=== PATIENT | male | born 1955 | race Caucasian/White ===

== ENCOUNTER → 2017-08-14 09:37 | Outpatient (CLI) | payer BC, SELFPAY ==
--- NOTE | 2017-08-14 09:42 | RAD_ITS ---
STUDY: X-RAY - LEFT ANKLE REASON FOR EXAM: Lateral pain and swelling, fall last night. TECHNIQUE: 3 view(s) of the ankle. COMPARISON: None. FINDINGS: Normal visualized distal tibia and fibula. Normal medial and lateral malleoli. Normal tibiotalar articulation and ankle mortise. Normal visualized talus and calcaneus. The visualized subtalar, talonavicular, calcaneocuboid and tarsal articulations are normal. There is mild soft tissue swelling at the lateral aspect of the ankle. There is soft tissue calcification plantar aspect of the heel. RAD/Ankle min 3 Views IMPRESSION: Mild soft tissue swelling. Soft tissue calcification at the plantar aspect of the heel. No demonstrated fracture. Electronically Signed: Harrison Rincon MD at 10:07 EST Tel , Service support ,
== END ==
PROVIDERS: Family Provider Nurse Practitioner; PCP Nurse Practitioner; Visit Provider Nurse Practitioner
DX: M25.472 Effusion, left ankle (principal)
CPT/HCPCS: 73610

== ENCOUNTER → 2018-02-21 08:14 | Outpatient (CLI) | payer BC, SELFPAY | PROVIDERS: Family Provider Nurse Practitioner; PCP Nurse Practitioner; Visit Provider Nurse Practitioner Adult Health | DX: R68.82 Decreased libido (principal); N52.9 Male erectile dysfunction, unspecified | CPT/HCPCS: 36415; 84403 ==

== ENCOUNTER → 2018-05-24 12:45 | Outpatient (CLI) | payer BC, SELFPAY ==
[2015-11-04 19:37] VITALS: BMI 29.2
[2018-05-25 11:52] LABS: PSA, Free 0.92 ng/mL; PSA, Free % 36.8 % (.); PSA, Total Ultrasensitive 2.5 ng/mL (0.0-4.0)
--- OUTSIDE RECORDS SUMMARY | 2018-07-19 16:15 | XMS RPT_ITS ---
:1955 Author Organization OHIP Care Team Providers Name Role Phone Zeenat [place] Attending Unavailable Zeenat Milan Primary Care Unavailable Lorna Gupta Attending Unavailable Lorna Gupta Referring Unavailable Zeenat Milan Primary Care Unavailable Lorna Gupta Attending Unavailable Lorna Gupta Referring Unavailable Zeenat Milan Primary Care Unavailable PROBLEMS PROBLEMS DATE TYPE CONDITION / CODE ATTENDING STATUS SOURCE 02/21/2018 Unknown R68.82 - Lorna Gupta Active [place] Decreased libido M Community / R68.82(ICD-10) Hospital Repository 02/21/2018 Unknown N52.9 - Male Lorna Gupta Active [place] erectile M [facility] dysfunction, Hospital unspecified / Repository N52.9(ICD-10) 08/14/2017 Unknown M25.472 - Zeenat Milan Active [place] Effusion, left Community ankle / Hospital M25.472(ICD-10) Repository PROCEDURES PROCEDURES No Procedure Records FoundRESULTS RESULTS PSA TOTAL+%FREE Collected: 05/24/2018 Status: F Source: AU[place]A 12:59 PM [facility] HOSPITAL REPOSITORY TYPE CODE TESTS RESULT OUT OF RANGE REFERENCE UNITS LAB L3110.0700 0.0-4.0 ng/mL Normal PSA, 2.5 TOTAL Result Comment: Nic ECLIA methodology. According to the [place] [employer], Serum PSA should decrease and remain at undetectable levels after radical prostatectomy. The AUA defines biochemical recurrence as an initial PSA value 0.2 ng/mL or greater followed by a subsequent confirmatory PSA value 0.2 ng/mL or greater. Values obtained with different assay methods or kits cannot be used interchangeably. Results cannot be interpreted as absolute evidence of the presence or absence of malignant disease. LAB L3110.0800 N/A ng/mL Normal PSA, 0.92 FREE Result Comment: Nic ECLIA methodology. LAB L3110.0900 . % Normal PSA, FREE 36.8 % Result Comment: The table below lists the probability of prostate cancer for men with non-suspicious JAX results and total PSA between 4 and 10 ng/mL, by patient age (Werner et al, KELLEY 1998, 279:1542). % Free PSA 50-64 yr 65-75 yr 0.00-10.00% 56% 55% 10.01-15.00% 24% 35% 15.01-20.00% 17% 23% 20.01-25.00% 10% 20% >25.00% 5% 9% Please note: Werner et al did not make specific recommendations regarding the use of percent free PSA for any other population of men. Performed at: - [employer] [address] [id number] Drum Tester: Joseph Recio PhD, Phone: [phone] Performed By: #### L3110.0500 #### [facility] (refer to report for specific site) refer to report for address and phone number TESTOSTERONE, SERUM TOTAL Collected: 02/21/2018 Status: F Source: AU[place] 8:18 AM [facility] REPOSITORY TYPE CODE TESTS RESULT OUT OF REFERENCE UNITS RANGE LAB L509.3000 ng/dL Testosterone Normal 423.87 Result Comment: NORMAL REFERENCE RANGES MALE AGE <50 123.06 - 813.86 ng/dL MALE AGE >50 89.98 - 780.10 ng/dL FEMALE PREMENOPAUSE AGE 21 - 60 9.01 - 47.94 ng/dL FEMALE POSTMENOPAUSE AGE 45 - 89 <7.00 - 45.62 ng/dL REFERENCE RANGE AND METHODOLOGY CHANGED 06/14/2017 Performed By: #### L509.3000 #### [facility] [address] [place], [address] ANKLE MIN 3 VIEWS Observed: 08/14/2017 Status: F Source: AUDRA 9:43 AM [facility] HOSPITAL REPOSITORY [facility] Imaging Services [address] [place] [address] Ankle min 3 Views MR#: [id number] Acct: [id number] Name: WESLEY CAMPOS Rep #: [id number] : 1955 M 62 From: Harrison Rincon MD PCP: Zeenat Milan NP Status: REG CLI Study: Ankle min 3 Views Date of Exam: 08/14/17 Exam# [id number] Ordering Dr: Zeenat Milan STUDY: X-RAY - LEFT ANKLE REASON FOR EXAM: Lateral pain and swelling, fall last night. TECHNIQUE: 3 view(s) of the ankle. COMPARISON: None. FINDINGS: Normal visualized distal tibia and fibula. Normal medial and lateral malleoli. Normal tibiotalar articulation and ankle mortise. Normal visualized talus and calcaneus. The visualized subtalar, talonavicular, calcaneocuboid and tarsal articulations are normal. There is mild soft tissue swelling at the lateral aspect of the ankle. There is soft tissue calcification plantar aspect of the heel. RAD/Ankle min 3 Views IMPRESSION: Mild soft tissue swelling. Soft tissue calcification at the plantar aspect of the heel. No demonstrated fracture. Electronically Signed: Harrison Rincon MD at 10:07 EST Tel , Service support , CC: Zeenat Milan NP Director Of Search Engine Optimization: Signed ALLERGIES ALLERGIES DATE TYPE / CODE NAME / CODE REACTION SEVERITY SOURCE 11/04/2015 Drug venom-honey Anaphylaxis Unknown [facility] Allergy/4160 bee/[id number] Hospital 45257(SNOMED 698(RXNORM) Repository CT) ENCOUNTERS ENCOUNTERS ADMIT/DISCHARGE ACCOUNT ADMITTING ENCOUNTER LOCATION SOURCE NUMBER CLASS 05/24/2018 [id number] Ambulatory [place] 7 [facility] ing:MTLAB Repository 02/21/2018 [id number] Ambulatory [place] Audra 9 [facility] ing:LAB Repository 08/14/2017 [id number] Ambulatory [place] Audra 8 [facility] ing:HPRAD Repository PAYERS PAYERS ENCOUNTER GUARANTOR PAYER SUBSCRIBER SOURCE 05/24/2018 WESLEY Sue Primary WESLEY [id number] Insurance:ANTHEMPolic BURTTDOB: Community [place]IVAS [place]: [id number] [id number] Repository [phone]: ([phone]) Date:0020-54-22EM [phone] () [address] [place] [id number]: 05/24/2018 Secondary NOT GIVENUNK Audra Insurance:SELF PAY [facility] Number: Effective Repository Date:2018-05-24 02/21/2018 Wesley [id number] Primary Wesley CamposDOB: [place] E Vivas Insurance:ANTHEMPolic [id number] Number: [facility] [id number]: (330) [id number] Repository [phone] () Date:9075-04-40PG [address] [place] [address] 14110DZ: 02/21/2018 Secondary NOT GIVENUNK Audra Insurance:SELF PAY [facility] Number: Effective Repository Date:2018-02-21 08/14/2017 Wesley [id number] Primary Wesley CamposDOB: Aud[place] E Vivas Insurance:ANTHEMPolic [id number] Number: [facility] [id number]: (330) [id number] Repository [phone] (HP) Date:6970-75-58AO [id number] [place] [address]BL: 08/14/2017 Secondary NOT GIVENUNK Audra Insurance:SELF PAY [facility]: Effective Repository Date:2017-08-14
== END ==
PROVIDERS: Family Provider Nurse Practitioner; PCP Nurse Practitioner; Referring Provider Nurse Practitioner Adult Health; Visit Provider Nurse Practitioner Adult Health
DX: R97.20 Elevated prostate specific antigen [PSA] (principal)
CPT/HCPCS: 36415; 84153; 84154

== ENCOUNTER → 2019-05-10 12:37 | Outpatient (CLI) | payer BC, SELFPAY ==
[2019-05-10 14:03] LABS: PSA,Total- Diagnostic 3.68 ng/mL (0.0-4.0)
== END ==
LOC: LAB.FUTURE 12:46 → LAB 12:46
PROVIDERS: Family Provider Nurse Practitioner; PCP Nurse Practitioner; Referring Provider Nurse Practitioner Adult Health; Visit Provider Nurse Practitioner Adult Health
DX: R97.20 Elevated prostate specific antigen [PSA] (principal)
CPT/HCPCS: 36415; 84153

== ENCOUNTER → 2020-07-17 06:28 | Outpatient (CLI) | payer BC, SELFPAY ==
[2020-07-03 08:26] VITALS: BMI 28.7
--- NOTE | 2020-07-17 06:32 | ECHOD_ITS ---
Reason For Study: AFib/Flutter Procedure This was a 2D Doppler, Color Flow transthoracic echocardiogram. Exam performed in department. Left Ventricle Normal LV size. Left ventricular systolic function is normal. The estimated ejection fraction is 60 %. No regional wall motion abnormalities noted. Right Ventricle Normal RV size. Normal systolic function. Atria The left atrium is mildly enlarged. Normal right atrium. Mitral Valve Normal mitral valve. Mild (1+) mitral valve insufficiency. Tricuspid Valve Normal tricuspid valve. Unable to estimate RV systolic pressure due to insufficient tricuspid regurgitant envelope. Aortic Valve Normal aortic valve. Trisinus/trileaflet aortic valve. Pulmonic Valve Normal pulmonic valve. Great Vessels Normal aortic root. The pulmonary artery is normal size. Normal inferior vena cava. Pericardium/Pleural No pericardial effusion. MMode/2D Measurements & Calculations LVIDd: 4.3 cm IVSd: 1.1 cm Ao root diam: 3.1 cm LVIDs: 2.7 cm LVPWd: 1.1 cm LA dimension: 4.2 cm RVDd: 2.9 cm FS: 37.8 % LAV(MOD-bp): 63.8 ml LA A4 area: 22.0 cm2 RA A4 area: 16.1 cm2 LAV(MOD-bp) Indexed: 27.2 ml/m2 LAV(MOD-sp2): 58.9 ml LAV(MOD-sp4): 60.3 ml Doppler Measurements & Calculations MV E max kitty: 107.0 cm/sec Ao V2 max: 134.6 cm/sec LV V1 max: 104.0 cm/sec Ao max P.3 mmHg LV V1 max P.3 mmHg PA V2 max: 97.9 cm/sec Interpretation Summary Normal LV size. Left ventricular systolic function is normal. The estimated ejection fraction is 60 %. The left atrium is mildly enlarged. Ordering Physician: All Smith Referring Physician: Zeenat Milan Performed By: Godfrey Shabazz RCS
--- NOTE | 2020-07-17 14:05 | STRESSREP ---
Stress Test Report Exercise myocardial perfusion stress test. 64-year-old male with a history of atrial fibrillation and hypertension. Stress protocol: Resting EKG demonstrates atrial fibrillation with a rate of 82 bpm normal intervals are noted resting blood pressure 118/62 mmHg. The patient exercised according to regular Nixon protocol for a total duration of 7 minutes completing 1 minute into stage III of the Nixon protocol. The maximum heart rate attained with probably approximately 210 bpm. This was 144% of max impacted heart rate the maximum workload was 8.5 metabolic equivalents. At rest nonspecific ST-T wave changes were noted at peak exercise there was approximately 1.[address] depression noted in leads II, III and aVF V5 and V6. Occasional premature ventricular complexes noted. In the immediate post recovery time there was upsloping ST changes noted with intermediate criteria for ischemia. The test was terminated due to the target heart rate being achieved and dyspnea. The peak blood pressure was 168/82 mmHg. Myocardial perfusion protocol. 14.2 mCi of technetium 99m sestamibi was injected at rest. Patient exercised according to regular Nixon protocol for a total duration of 7 minutes. At peak exercise 43.9 mCi of technetium 99m sestamibi was injected stress images were obtained stress and rest images were reconstructed and compared in the short axis vertical long horizontal long axis. Gated images were also obtained Perfusion SPECT analysis: Review of the stress images demonstrate normal uptake of tracer noted in all areas of myocardium except for a small portion of the mid anterior wall with a perfusion defect on the stress and resting images to a similar extent. A previous small anterior infarct cannot be completely excluded. Gated SPECT analysis: The gated ejection fraction is noted to be 68%. Conclusion: Normal exercise myocardial perfusion stress test at a moderate workload. Atrial fibrillation noted. Previous small anterior infarct cannot be completely excluded.
== END ==
PROVIDERS: PCP Nurse Practitioner; Referring Provider Internal Medicine Cardiovascular Disease; Visit Provider Internal Medicine Cardiovascular Disease
DX: I48.91 Unspecified atrial fibrillation (principal); I10 Essential (primary) hypertension
CPT/HCPCS: 78452; 93017; 93306; A9500; A4216

== ENCOUNTER 2021-01-24 13:00 | Emergency (ER) | payer BC, SELFPAY ==
[2021-01-21 09:50] VITALS: BMI 27.6
[2021-01-24 13:00] VITALS: BP 115/83; PULSE 69; RESP 16; TEMP 36.2; O2SAT 98; BMI 28.2
--- NOTE | 2021-01-24 13:22 | MRI_ITS ---
HISTORY: radiculopathy (RIGHT leg), LBP, difficulty urinating EXAMINATION: MR Spine Lumbar W/O Contrast TECHNIQUE: Multiplanar and multisequence MR images of the lumbar spine. IV Contrast dosage and agent: None. COMPARISON: 329 and 12 FINDINGS: VERTEBRAE: No acute fracture or pathologic marrow replacement. 3 mm retrolisthesis L3 on L4. No expansile or destructive lesion. CORD: Normal visualized portions of the spinal cord and cauda equina, with the tip of the conus medullaris at the L1 level. No intradural or intramedullary soft tissue mass or epidural fluid collection. SOFT TISSUES: Unremarkable. L1/L2: Circumferential annular bulge without significant central or foraminal stenosis. L2/L3: Circumferential annular bulge with mild central and bilateral foraminal stenoses. High intensity zone in the posterior annulus. L3/L4: Circumferential annular bulge with progressive loss of disc space height, moderate central and left foraminal stenosis, severe right foraminal stenosis. L4/L5: Circumferential annular bulge with high intensity zone in the posterior annulus. No significant central or foraminal stenosis. L5/S1: No disc bulge, central canal stenosis, or neural foraminal stenosis. MRI/Spine Lumbar (Routine) IMPRESSION: Multilevel foraminal stenoses due to circumferential annular bulge. Changes L3-4 have progressed from the prior study with severe right foraminal stenosis. Radial annular tears at L2-3 and L4-5. at 1547 Reported and signed by: Christophe Short MD Electronically Signed: Christophe Short MD at 15:46 EDT Tel , Service support ,
--- NOTE | 2021-01-24 13:24 | EDS_ITS ---
HPI History of Present Illness Chief Complaint: Back Detail of Chief Complaint: Back pain Informant: patient Onset/Context/Timing Timing: Continuous Quality: Sharp, Aching, Burning and Throbbing Location: Lumbar Current Severity: 8/10 Worsened by: improves with Movement Relieved by: Nothing Associated Symptoms Associated Symptoms: [facility] History (Updated 01/24/21 @ 16:[address] China Millard, DO) Acute lumbar myofascial strain Atrial fibrillation, new onset (06/22/20) COPD (chronic obstructive pulmonary disease) DDD (degenerative disc disease), lumbar Dilation of descending aorta Essential hypertension Hyperlipidemia Lumbar radiculopathy, acute Vitamin D deficiency Home Medications epinephrine 0.3 mg IM X1 PRN #2 syringe 11/04/15 [Rx Last Taken Unknown] apixaban 5 mg tablet 5 mg PO BID 06/30/20 [History Last Taken Unknown] atenolol 25 mg tablet 25 mg PO DAILY 06/30/20 [History Last Taken Unknown] lisinopril 5 mg tablet 5 mg PO DAILY #90 tab 07/03/20 [Rx Last Taken Unknown] cyclobenzaprine 10 mg tablet 10 mg PO TID PRN #20 tab 01/21/21 [Rx Last Taken Unknown] prednisone 10 mg tablet 10 mg PO DAILY #30 tab 01/21/21 [Rx Last Taken Unknown] oxycodone-acetaminophen 1 tab PO Q6H PRN PRN 5 Days #20 tablet 01/24/21 [Rx Last Taken Unknown] Allergy/AdvReac Type Severity Reaction Status Date / Time venom-honey bee Allergy Anaphylaxis Verified 01/24/21 13:02 [bee venom (honey bee)] Family History Mother Cancer brain CVA (cerebral vascular accident) Father Asthma Hypertension Surgical History History of colonoscopy with polypectomy History of vasectomy Social History Smoking Status: Former smoker how long ago did patient quit smokin alcohol intake: never substance use type: does not use ROS ROS ED Constitutional Constitutional ED: Reports systems reviewed and no addt'l complaints, except as documented; Denies body ache(s), change in weight or chills Eyes Eyes: Denies acute decrease in peripheral vision, change in vision, double vision or loss of vision ENT ENT ED: Reports none; Denies ear pain, lip swelling, loss taste/smell, neck pain, otalgia or sore throat Cardiovascular Cardiovascular: Reports none; Denies abdominal pain, chest pain with activity, leg edema, lightheadedness, palpitations, rapid heart rate or syncope Respiratory/Chest Respiratory/Chest: Reports none; Denies change in mental status, dry cough, dyspnea, hemoptysis, shortness of breath at rest or shortness of breath with exertion Gastrointestinal Gastrointestinal: Reports none; Denies abdominal pain, change in stool character, diarrhea, hematemesis, hematochezia, melena, rectal bleeding or vomiting Genitourinary Genitourinary ED: Reports none; Denies abdominal discomfort, anuria, dysuria, g enital pain or polyuria Musculoskeletal Musculoskeletal: Reports none, back pain and other Details: Pain radiating down right leg ; Denies arthralgias, difficulty walking, extremity pain, muscle weakness or myalgias Integumentary Reports none; Denies abscess or rash Neurologic Neurologic: Reports none; Denies abnormal gait, confusion, focal weakness, frequent falls, headache(s), loss of vision, numbness, paresthesias, radicular pain, vertigo or weakness Psychiatric Psychiatric: Reports systems reviewed and no addt'l complaints, except as documented and none; Denies behavioral changes, confusion, difficulty concentrating, hallucinations, suicidal ideation, tactile hallucinations or visual hallucinations Endocrine Endocrinology: Denies none, cold intolerance, excessive sweating, fatigue or heat intolerance Hematologic/Lymphatic Hematologic/Lymphatic: Reports none; Denies anemia, easy bleeding or easy bruising Allergic/Immunologic Allergic/Immunologic ED: Denies as per HPI, none, lip swelling, mouth swelling, throat swelling, tongue swelling or hives EXAM Physical Exam Const Vital Signs: 01/24/21 13:00 Temperature 97.2 F L Temperature Source Temporal Pulse Rate 69 Respiratory Rate 16 Blood Pressure 115/83 H Blood Pressure Mean 93 Pulse Ox 98 Oxygen Delivery Method Room Air Positive well nourished and well developed General Appearance ED: well developed and NAD HEENT Reports TM's clear and moist mucous membranes normocephalic and atraumatic; Negative for trauma or tenderness Tympanic Membrane ED: Yes TM's clear Eyes PERRL and EOMs intact bilaterally General Eye ED: Negative for pale conjunctiva or scleral icterus Neck no lymphadenopathy, supple and no JVD General: Negative for tenderness Chest Wall inspection of chest normal and palpation of chest normal Chest: Negative for tenderness Resp normal respiratory effort and clear to auscultation bilaterally Effort and Inspection: Negative for respiratory distress or pain with movement Auscultation: Negative for rhonchi, wheezes or diminished lung sounds Cardio regular rate, regular rhythm, S1 normal heart sound, S2 normal heart sound and no murmurs Peripheral Pulses: pulses 2+ throughout GI normal to inspection, nondistended, normoactive bowel sounds, soft to palpation, non-tender, non-distended and no masses Back/Spine no CVA tenderness and no thoracic nor lumbar tenderness Back/Spine Narrative: Evaluation of patient's back reveals no erythema or warmth. No skin changes noted. Patient has no pain on palpation of his back. Patient has negative straight leg raise. Deep tendon reflex on the right patella is absent and normal on the left. Absent reflex on the right at the Achilles and normal reflex on the left. Patient has normal 5 extension. Patient has normal sensation to light touch bilaterally. Patient has normal rectal tone. No saddle anesthesia. Extremity normal to inspection General Extremety ED: Negative for edema General Extremity: Negative for edema Neuro oriented x3, CN's II-XII intact bilaterally, no sensory deficits noted and gait normal Sensorium / Orientation: awake, alert, oriented to person, oriented to place and oriented to time Motor Exam: strength 5/5 throughout and strength abnormal Psych mental status grossly normal Skin no rashes or lesions noted and no wounds MDM MDM MDM Narrative Medical decision making narrative: Patient case discussed with Dr. Alegre who is the back surgeon locally. Dr. Alegre would be happy to see patient in the office this week. Patient to continue with his prednisone and I will start him on Percocet for pain. He had good pain relief here with morphine and Zofran. At this point there is no evidence of cauda equina and I suspect the circumferential annular bulge with severe right foraminal stenosis is the etiology of his pain. Radiography Diagnostic Testing: Radiology Impression Lumbar Spine MRI 01/24/21 13:22 IMPRESSION: Multilevel foraminal stenoses due to circumferential annular bulge. Changes L3-4 have progressed from the prior study with severe right foraminal stenosis. Radial annular tears at L2-3 and L4-5. at 1547 Reported and signed by: Christophe Short MD Electronically Signed: Christophe Short MD at 15:46 EDT Tel , Service support , Discharge Plan Triage Chief Complaint: Back ED Provider: China Millard Dx/Rx/DC Orders Clinical Impression: Lumbar radiculopathy, acute Instructions: ED Sciatica Prescriptions: New oxycodone-acetaminophen [oxycodone-acetaminophen] 1 TABLET tablet 1 tab PO Q6H PRN PRN (Reason: pain) 5 Days Qty: 20 RF: 0 No Action lisinopril 5 mg tablet 5 mg PO DAILY Qty: 90 RF: 3 Eliquis 5 mg tablet 5 mg PO BID RF: 0 atenolol 25 mg tablet 25 mg PO DAILY RF: 0 prednisone 10 mg tablet 10 mg PO DAILY Qty: 30 RF: 0 cyclobenzaprine 10 mg tablet 10 mg PO TID PRN (Reason: muscle spasm) Qty: 20 RF: 0 epinephrine 0.3 MG syringe 0.3 mg IM X1 PRN (Reason: Anaphylaxis) Qty: 2 RF: 0 Primary Care Provider: Zeenat Milan NP Referrals: Desmond Alegre DO [STAFF PHYSICIAN] - 3-5 Days Zeenat Milan NP, ORGANIC CHEMISTRY PROFESSOR-C [Primary Care Provider] - Disposition Disposition: Home, Self Care
[2021-01-24] MEDS: Morphine 4 MG/ML Syringe IV (13:59)
[2021-01-24] MEDS: Ondansetron 4 MG/2 ML Vial IV (13:59)
[2021-01-24 16:23] VITALS: PULSE 72; RESP 16; O2SAT 98
== END 2021-01-24 16:24 | disposition home or self-care (01) ==
PROVIDERS: Emergency Provider Emergency Medicine; PCP Nurse Practitioner
DX: M51.16 Intervertebral disc disorders with radiculopathy, lumbar region (principal); M48.061 Spinal stenosis, lumbar region without neurogenic claudication; Z87.891 Personal history of nicotine dependence; I10 Essential (primary) hypertension; E78.5 Hyperlipidemia, unspecified; J44.9 Chronic obstructive pulmonary disease, unspecified; I48.91 Unspecified atrial fibrillation; Z79.01 Long term (current) use of anticoagulants; Z79.52 Long term (current) use of systemic steroids
CPT/HCPCS: 72148; 96374; 96375; 99283; A4216; J2405

== ENCOUNTER → 2021-02-12 07:31 | Outpatient (CLI) | payer BC, SELFPAY ==
[2021-02-12 10:17] LABS: PSA,Total - Annual Screen 4.15 ng/mL (0.00-4.00)
== END ==
PROVIDERS: PCP Nurse Practitioner; Referring Provider Nurse Practitioner; Visit Provider Nurse Practitioner
DX: Z12.5 Encounter for screening for malignant neoplasm of prostate (principal); Z91.030 Bee allergy status
CPT/HCPCS: 36415; 83520; 84153; G0103

== ENCOUNTER → 2021-06-05 08:18 | Outpatient (CLI) | payer BC, SELFPAY ==
[2021-06-05 09:07] LABS: Absolute Lymphocyte Count 2.46 X10^3/uL (0.83-4.51); Absolute Neutrophil Count 4.1 X10^3/uL (2.0-7.7); Basophil# 0.04 X10^3/uL; Basophil% 0.5 % (0-1); Eosinophil# 0.27 X10^3/uL; Eosinophils% 3.6 % (0-5); Hemoglobin 14.5 g/dL (13.0-16.5); Lymphocyte # 2.46 X10^3/ul (0.83-4.51); Lymphocyte % 32.4 % (19-41); Mean Corp Hgb Conc 33.7 g/dL (32-36); Mean Corpuscular Hgb 32.2 pg (27.0-32.0); Mean Corpuscular Volume 95.6 fL (80-94); Mean Platelet Vol. 9.8 fl (6.2-12.0); Monocyte# 0.69 X10^3/uL; Monocyte% 9.1 % (0-10); NRBC Flagged by Analyzer 0 % (0-5); Platelet Count 211 K/mm3 (150-450); RBC Distribution Width SD 42.2 fl (35.1-43.9); White Blood Count 7.6 K/mm3 (4.4-11.0)
[2021-06-05 09:41] LABS: ALB/GLOB Ratio 1.1 RATIO (0.9-2.4); AST(SGOT) 22 U/L (15-37); Alanine Aminotransfer ALT/SGPT 35 U/L (16-61); Albumin, Serum 3.7 g/dL (3.2-5.0); Alkaline Phosphatase 58 U/L (45-117); Anion Gap 8 (5-15); BUN 26 mg/dL (7-18); BUN/Creat Ratio 22.4 RATIO (10-20); Calcium,Total 8.5 mg/dL (8.5-10.1); Chloride 107 mmol/L (98-107); Cholesterol 200 mg/dL (200); Creatinine, Serum 1.16 mg/dL (0.70-1.30); EST Glomerular Filtration Rate 67 mL/min (>60); Est Glom Filt Rate - Afr Amer 81 mL/min (>60); Globulin 3.4 g/dL (2.2-4.2); Glucose 98 mg/dL (74-106); High Density Lipoprotein 38 mg/dL; Potassium 4.1 mmol/L (3.5-5.1); Protein, Total 7.1 g/dL (6.4-8.2); Sodium Level 141 mmol/L (136-145); Thyroid Stim Hormone (TSH) 3.36 uIU/mL (0.358-3.74); Triglycerides 156 mg/dL; Very Low Density Lipoprotein 31 mg/dL (5-40)
[2021-06-07 08:56] LABS: Vitamin D,25 Hydroxy 40.2 ng/mL
== END ==
PROVIDERS: PCP Nurse Practitioner; Referring Provider Nurse Practitioner; Visit Provider Nurse Practitioner
DX: I10 Essential (primary) hypertension (principal); E55.9 Vitamin D deficiency, unspecified
CPT/HCPCS: 36415; 80053; 80061; 82306; 84443; 85025

== ENCOUNTER → 2021-10-25 | Outpatient (CLI) | payer BC, SELFPAY ==
--- NOTE | 2021-10-25 10:07 | RAD_ITS ---
STUDY: X-RAY CHEST REASON FOR EXAM: Male, 66 years old. Pre DCCV TECHNIQUE: PA and lateral COMPARISON: 11/06/2014. FINDINGS: The lungs are clear and expanded. There is no demonstrated pleural abnormality. Normal size heart. Normal mediastinum and pradip. Normal visualized pulmonary arteries. Normal visualized aortic arch and descending thoracic aorta. Normal visualized thoracic spine. Normal visualized ribs, clavicles, and shoulders. There is no demonstrated abnormality of the visualized soft tissue structures of the upper abdomen. RAD/Chest PA and Lateral IMPRESSION: Normal x-ray examination of the chest. Electronically Signed: Jonathan Alonso MD at 2:37 EDT ,
[2021-10-25 12:03] LABS: Anion Gap 5 (5-15); BUN 19 mg/dL (7-18); BUN/Creat Ratio 15.4 RATIO (10-20); Calcium,Total 8.5 mg/dL (8.5-10.1); Chloride 106 mmol/L (98-107); Creatinine, Serum 1.23 mg/dL (0.70-1.30); EST Glomerular Filtration Rate 62 mL/min (>60); Est Glom Filt Rate - Afr Amer 75 mL/min (>60); Glucose 103 mg/dL (74-106); Potassium 4.5 mmol/L (3.5-5.1); Sodium Level 138 mmol/L (136-145)
== END | disposition home or self-care (01) ==
PROVIDERS: PCP Nurse Practitioner; Referring Provider Nurse Practitioner Family; Visit Provider Nurse Practitioner Family
DX: I48.19 Other persistent atrial fibrillation (principal); Z01.810 Encounter for preprocedural cardiovascular examination
CPT/HCPCS: 36415; 71046; 80048

== ENCOUNTER 2021-11-03 10:09 | Day surgery (SDC) | payer BC, SELFPAY ==
[2021-11-02 09:56] VITALS: BMI 30.4
--- NOTE | 2021-11-03 12:20 | PCM.OP.BLANK ---
Problems Associated Problem List Diagnoses (1) Persistent atrial fibrillation: Operative Report Date of Procedure: 11/03/21 DC cardioversion. 66-year-old man with a history of atrial fibrillation persistent and symptomatic. The patient was brought to the cardiac catheterization lab in the postabsorptive nonsedated state. Informed consent was obtained. The patient was seen by Dr. Garcia over the critical care division. Anterior-posterior pads were applied. The patient was administered 60 mg of intravenous propofol. 200 J of synchronized DC cardioversion energy was then administered with prompt reversal to sinus rhythm. Patient tolerated the procedure well. Conclusion: Successful DC cardioversion from atrial fibrillation to sinus rhythm. Continue follow-up per office protocol.
--- NOTE | 2021-11-03 13:14 | PRO.PCM_ITS ---
Assessment & Plan Assessment/Plan (1) Persistent atrial fibrillation: Procedure Report Date of Procedure: 11/03/21 CONSCIOUS SEDATION REPORT BRIEF HISTORY OF PRESENT ILLNESS: The patient is a 66-year-old male who presented to [facility] for an elective outpatient cardioversion due to underlying atrial fibrillation. The patient reports no PO intake since midnight, but is currently therapeutic on anticoagulation. The patient does not have a history of AMINAH, smoking or COPD. The patient denies any recent constitutional symptoms such as fevers, chills, nausea or vomiting. The patient denies previous applicable anesthetic complications. Patient's last known ejection fraction was 60%. Patient did take Xarelto on the day prior to the procedure. PHYSICAL EXAMINATION: VITAL SIGNS: Reviewed and were acceptable. GENERAL: The patient is a male, in no apparent distress, speaking in full sentences. HEENT: Normocephalic, atraumatic. Mucous membranes are moist and pink. Good mouth opening noted. Trachea is midline. Good neck mobility. MP II. Dentures removed. CHEST: S1, S2 irregularly irregular. No murmurs, rubs or gallops were noted. LUNGS: Clear to auscultation bilaterally without appreciable wheezes, rales or rhonchi. ABDOMEN: Soft, nontender, nondistended. Positive bowel sounds. EXTREMITIES: There is no clubbing, cyanosis or edema. ASA Class: II DESCRIPTION OF PROCEDURE: After confirmation of informed consent, the patient's anesthesia plan was reviewed in detail. Propofol was chosen. Risks and benefits were reviewed and the patient agreed to proceed. At 12:10 PM, the patient was given 40 mg of propofol. The patient required a total of 60 mg of propofol throughout the procedure to achieve appropriate sedation. The patient achieved an appropriate level of sedation and received 1 attempt synchronized cardioversion, at [address] Smith at the bedside. This was successful in achieving normal sinus rhythm. The patient was monitored until 12:25 PM, at which time the patient reached their baseline mental status and function. The patient tolerated the procedure well. COMPLICATIONS: None ESTIMATED BLOOD LOSS: None RECOMMENDATIONS: Okay to recover in usual fashion. Procedures Pulmonary 9xxxx: [id number] Con Sedation
== END 2021-11-03 13:15 | disposition home or self-care (01) ==
LOC: CLSP 10:11
PROVIDERS: PCP Nurse Practitioner; Visit Provider Internal Medicine Cardiovascular Disease
DX: I48.19 Other persistent atrial fibrillation (principal); J44.9 Chronic obstructive pulmonary disease, unspecified; I10 Essential (primary) hypertension; Z87.891 Personal history of nicotine dependence
CPT/HCPCS: 92960; 93005; J7030

== ENCOUNTER → 2022-05-28 | Outpatient (CLI) | payer BC, SELFPAY ==
[2022-05-28 08:36] LABS: Absolute Lymphocyte Count 3.15 X10^3/uL (0.83-4.51); Absolute Neutrophil Count 4.5 X10^3/uL (2.0-7.7); Basophil# 0.07 X10^3/uL; Basophil% 0.7 % (0-1); Eosinophil# 0.73 X10^3/uL; Eosinophils% 7.8 % (0-5); Hematocrit 45.3 % (40-54); Hemoglobin 14.9 g/dL (13.0-16.5); Lymphocyte # 3.15 X10^3/ul (0.83-4.51); Lymphocyte % 33.7 % (19-41); Mean Corp Hgb Conc 32.9 g/dL (32-36); Mean Corpuscular Hgb 31.4 pg (27.0-32.0); Mean Corpuscular Volume 95.6 fL (80-94); Mean Platelet Vol. 9.5 fl (6.2-12.0); Monocyte# 0.88 X10^3/uL; Monocyte% 9.4 % (0-10); NRBC Flagged by Analyzer 0 % (0-5); Neutrophil # 4.47 X10^3/uL (2.7-7.7); Platelet Count 237 K/mm3 (150-450); RBC Distribution Width CV 12.4 % (11.6-14.6); RBC Distribution Width SD 43.4 fl (35.1-43.9); Red Blood Count 4.74 M/mm3 (4.6-6.2); White Blood Count 9.3 K/mm3 (4.4-11.0)
[2022-05-28 09:39] LABS: ALB/GLOB Ratio 1.1 RATIO (0.9-2.4); AST(SGOT) 28 U/L (15-37); Alanine Aminotransfer ALT/SGPT 41 U/L (16-61); Albumin, Serum 3.4 g/dL (3.2-5.0); Alkaline Phosphatase 59 U/L (45-117); Anion Gap 5 (5-15); BUN 24 mg/dL (7-18); BUN/Creat Ratio 18.8 RATIO (10-20); Calcium,Total 8.4 mg/dL (8.5-10.1); Chloride 107 mmol/L (98-107); Creatinine, Serum 1.28 mg/dL (0.70-1.30); EST Glomerular Filtration Rate 59 mL/min (>60); Est Glom Filt Rate - Afr Amer 72 mL/min (>60); Globulin 3.1 g/dL (2.2-4.2); Glucose 99 mg/dL (74-106); PSA,Total - Annual Screen 3.52 ng/mL (0.00-4.00); Potassium 4.5 mmol/L (3.5-5.1); Protein, Total 6.5 g/dL (6.4-8.2); Sodium Level 138 mmol/L (136-145)
[2022-05-30 08:22] LABS: Vitamin D,25 Hydroxy 53.7 ng/mL
== END | disposition home or self-care (01) ==
LOC: LAB 07:56
PROVIDERS: PCP Internal Medicine; Visit Provider Internal Medicine
DX: Z01.810 Encounter for preprocedural cardiovascular examination (principal); I48.19 Other persistent atrial fibrillation; E78.5 Hyperlipidemia, unspecified; I10 Essential (primary) hypertension
CPT/HCPCS: 36415; 80053; 82306; 84153; 84443; 85025; G0103

== ENCOUNTER 2022-10-27 10:07 | Day surgery (SDC) | payer BC, SELFPAY ==
--- NOTE | 2022-10-27 10:47 | HP.PCM_ITS ---
[facility] - General General Date of Admission: 10/27/22 Date of Service: 10/27/22 Chief Complaint: Surveillance colonoscopy HPI Narrative ANGELY PEREZ, is a 67 M who presents today for colonoscopy. He had a colonoscopy approximately 5 years ago and had 1 polyp that was removed. He has a history of atrial fibrillation, hypertension, hyperlipidemia. He is on Xarelto for his history of atrial fibrillation. He denies any bleeding per rectum. He denies any nausea, vomiting or diarrhea. Overall he is very stable at this time. [facility] Medical History (Updated 10/24/22 @ 10:59 by Kirstin Dao) Acute lumbar myofascial strain Alcohol use Atrial fibrillation, new onset (06/22/20) Back pain Cardiology follow-up encounter COPD (chronic obstructive pulmonary disease) DDD (degenerative disc disease), lumbar Dilation of descending aorta Essential hypertension Excessive bleeding Former smoker History of cardioversion History of echocardiogram History of stress test Hyperlipidemia Injury of back Injury of head and neck Leg cramps Lumbar radiculopathy, acute Vitamin D deficiency Wears glasses Wears hearing aid Home Medications epinephrine 0.3 mg/0.3 mL injection, auto-injector 0.3 mg (0.3 mL) IM X1 PRN Anaphylaxis #2 syringes 11/04/15 [Rx Last Taken Unknown] cholecalciferol (vitamin D3) 125 mcg (5,000 unit) capsule 125 mcg PO DAILY 06/24/21 [History Last Taken Unknown] rivaroxaban 20 mg tablet 20 mg PO QPM 10/25/21 [History Last Taken 10/23/22] lisinopril 5 mg tablet 5 mg PO DAILY This is a dose decrease #90 tabs 04/27/22 [Rx Last Taken Unknown] atenolol 25 mg tablet 25 mg PO DAILY #90 tabs 07/23/22 [Rx Last Taken Unknown] cyanocobalamin (vitamin B-12) 500 mcg tablet (Vitamin B-12) 500 mcg PO DAILY 10/24/22 [History Last Taken Unknown] tamsulosin 0.4 mg capsule 0.4 mg PO QHS 10/24/22 [History Last Taken Unknown] Allergy/AdvReac Type Severity Reaction Status Date / Time bee pollen Allergy Intermediate Other Verified 10/24/22 10:42 bee venom protein (honey bee) Allergy Swelling Verified 10/24/22 10:42 [bee stings] Family History Mother Cancer brain CVA (cerebral vascular accident) Father Asthma Hypertension Severe allergy Dementia Other Diabetes Surgical History History of colonoscopy with polypectomy History of vasectomy Social History adopted: No household members: spouse housing: house current occupational status: employed current occupation: rehabilitation center manager leisure activities: other history of recent travel: No sexually active: No Smoking Status: Former smoker how long ago did patient quit smokin alcohol intake: current alcohol intake frequency: a few times a month Alcohol type: beer substance use type: does not use caffeine: Yes Type: coffee Number of servings: 1 eating out: 1-3 times/week during the past year weight has: remained stable seatbelt use: always do you feel safe at home: Yes ROS Review of Systems ROS Unobtainable: other Constitutional Constitutional: Denies fatigue, fever(s), poor appetite, weight gain or weight loss ENT HEENT: Denies mouth lesions Cardiovascular Cardiovascular: Denies abdominal bloating, abdominal edema or abdominal pain Respiratory/Chest Respiratory/Chest: Denies change in mental status, change in phlegm color, chest congestion or chest tightness Gastrointestinal Gastrointestinal: Denies belching, bloating, change in bowel habits, change in stool character, chewing difficulty, coffee ground emesis, constipation, cramping, diarrhea, dyspepsia, dysphagia, early satiety, excessive flatus, fecal incontinence, heartburn, hematemesis, hematochezia, hemorrhoids, loose stools, melena, nausea, odynophagia, rectal bleeding, tenesmus, vomiting or weight changes Genitourinary Genitourinary: Denies abdominal discomfort, burning urination or itching Musculoskeletal Musculoskeletal: Reports as per HPI; Denies muscle weakness or myalgias Integumentary Integumentary: Denies jaundice Neurologic Neurologic: Denies lack of coordination or weakness Psychiatric Psychiatric: Denies confusion, depression, memory loss, mood swings, paranoia or suicidal ideation Endocrine Endocrinology: Denies systems reviewed and no addt'l complaints, except as documented Hematologic/Lymphatic Hematologic/Lymphatic: Denies anemia, easy bleeding, easy bruising or lymphadenopathy Allergic/Immunologic Allergic/Immunologic: Denies systems reviewed and no addt'l complaints, except as documented Physical Exam Const alert General Appearance: cooperative Orientation / Consciousness: oriented to person HEENT hearing grossly normal bilaterally Head and Scalp: normal to inspection Face and Sinus: face symmetric Nose: external nose normal Mouth: oral and palatal mucosa normal Eyes conjunctivae normal General Eye: normal appearance of both eyes Neck full ROM General: normal visual inspection Lymph Lymphatic: no lymphadenopathy noted Chest inspection of chest normal and palpation of chest normal Chest: symmetrical chest wall rise Resp normal respiratory effort Effort and Inspection: able to speak in complete sentences Cardio regular rate GI non-distended Percussion: normal to percussion Rectal Exam: deferred Neuro Speech: speech normal Gait (Neuro): normal gait Assessment & Plan Assessment/Plan (1) Encounter for screening for malignant neoplasm of colon: PLAN: He will undergo surveillance colonoscopy. He was explained alternatives, risk, benefits including outstanding bleeding, infection, sepsis, perforation, need for emergent urgent . He will have an ASA of 3.
[2022-10-27 11:32] VITALS: BP 104/75; PULSE 75; RESP 18; TEMP 36.1; O2SAT 98; BMI 27.8
[2022-10-27] MEDS: Lactated Ringers 1,000 ML 15 ML IV (11:48)
--- NOTE | 2022-10-27 12:15 | COLBX_PTH ---
PATIENT: ANGELY PEREZ LOC: EN U#:[id number] AGE/SX: 67/M ROOM: RE10/27/[address]: Dr. Brandon Magaña DO : 1955 BED: DIS: 10/27/2022 SPEC #: [id number] RECD: 10/27/22 14:53 STATUS: CHRISTIAN TAN #: [id number] ELVIRA: 10/27/22 12:[address]: Brandon Magaña DEPT: SURGICAL PATHOLOGY RECD BY: Maliha Whitaker ENTERED: 10/28/22 12:32 SP TYPE: COLON BX SHENA DR: Dr. Danitza Taylor MD Tissues: A - COLON BIOPSY B - Cecum, NOS C - Transverse colon Procedures: Surgery Specimen Level IV HEADER OPERATION: Colonoscopy ? open access (MAC), biopsy PRE-OP DIAGNOSIS: Screening TISSUE SUBMITTED: A ? Hepatic flexure polyp biopsy, B ? Cecal polyp, C ? Transverse polyp biopsy MICROSCOPIC DIAGNOSIS A. Colonic polyp at hepatic flexure, biopsy: Tubular adenoma. B. Cecal polyp, biopsy: Tubular adenoma. Hyperplastic polyp. Focal changes suggestive of mucosal lipoma. C. Transverse colon polyp, biopsy: Tubular adenoma. AM:mir 10/31/2022 AM:mir 11/02/2022 MICROSCOPIC DESCRIPTION Slides are reviewed. GROSS DESCRIPTION A - Received in fixative is one container labeled with the patient's name and designated hepatic flexure polyp biopsy. The specimen consists of one irregular fragment of light hart soft tissue that measures 0.3 x 0.3 x 0.1 cm. The specimen is totally submitted in one cassette. B - Received in fixative is one container labeled with the patient's name and designated cecal polyp. The specimen consists of two hart-pink polyps measuring 0.5 x 0.5 x 0.3 cm and 0.8 x 0.6 x 0.3 cm. Also present in the container are multiple fragments of fecal material mixed with hart soft tissue measuring in aggregate 2.5 x 0.2 x 0.1 cm. The specimen is totally submitted in one cassette. C - Received in fixative is one container labeled with the patient's name and designated transverse polyp. The specimen consists of one irregular fragment of light hart soft tissue that measures 0.4 x 0.3 x 0.1 cm. The specimen is totally submitted in one cassette. / SJ:mir 10/28/2022 TC:5 CPT: 60011 x3
--- NOTE | 2022-10-27 12:15 | COLBX_PTH ---
PATIENT: ANGELY PEREZ LOC: EN U#:[id number] AGE/SX: 67/M ROOM: RE10/27/[address]: Dr. Brandon Magaña DO : 1955 BED: DIS: 10/27/2022 SPEC #: [id number] RECD: 10/27/22 14:53 STATUS: CHRISTIAN TAN #: [id number] ELVIRA: 10/27/22 12:[address]: Brandon Magaña DEPT: SURGICAL PATHOLOGY RECD BY: Maliha Whitaker ENTERED: 10/28/22 12:32 SP TYPE: COLON BX SHENA DR: Dr. Danitza Taylor MD Tissues: A - COLON BIOPSY B - Cecum, NOS C - Transverse colon Procedures: Surgery Specimen Level IV HEADER OPERATION: Colonoscopy ? open access (MAC), biopsy PRE-OP DIAGNOSIS: Screening TISSUE SUBMITTED: A ? Hepatic flexure polyp biopsy, B ? Cecal polyp, C ? Transverse polyp biopsy MICROSCOPIC DIAGNOSIS A. Colonic polyp at hepatic flexure, biopsy: Tubular adenoma. B. Cecal polyp, biopsy: Tubular adenoma. Focal changes suggestive of mucosal lipoma. C. Transverse colon polyp, biopsy: Tubular adenoma. AM:mir 10/31/2022 MICROSCOPIC DESCRIPTION Slides are reviewed. GROSS DESCRIPTION A - Received in fixative is one container labeled with the patient's name and designated hepatic flexure polyp biopsy. The specimen consists of one irregular fragment of light hart soft tissue that measures 0.3 x 0.3 x 0.1 cm. The specimen is totally submitted in one cassette. B - Received in fixative is one container labeled with the patient's name and designated cecal polyp. The specimen consists of two hart-pink polyps measuring 0.5 x 0.5 x 0.3 cm and 0.8 x 0.6 x 0.3 cm. Also present in the container are multiple fragments of fecal material mixed with hart soft tissue measuring in aggregate 2.5 x 0.2 x 0.1 cm. The specimen is totally submitted in one cassette. C - Received in fixative is one container labeled with the patient's name and designated transverse polyp. The specimen consists of one irregular fragment of light hart soft tissue that measures 0.4 x 0.3 x 0.1 cm. The specimen is totally submitted in one cassette. / SJ:mir 10/28/2022 TC:5 CPT: 92941 x3
[2022-10-27 12:55] VITALS: BP 104/79; BP 155/100; PULSE 86; RESP 18; TEMP 36.3; O2SAT 96
--- NOTE | 2022-10-27 12:56 | OP.COLON_ITS ---
Patient Name: Wesley Campos Procedure Date: 10/27/2022 12:25 PM Date of : 1955 Age: 67 Procedure: Colonoscopy Indications: Screening for colorectal malignant neoplasm Providers: Brandon Magaña DO Referring MD: Brandon Magaña DO Medicines: Monitored Anesthesia Care Patient Profile: This is a 67 year old male. Refer to note in patient chart for documentation of history and physical. Last Colonoscopy: several years ago. Complications: No immediate complications. Procedure: Pre-Anesthesia Assessment: - Prior to the procedure, a History and Physical was performed, and patient medications and allergies were reviewed. The risks and benefits of the procedure and the sedation options and risks were discussed with the patient. All questions were answered and informed consent was obtained. Patient identification and proposed procedure were verified by the physician. Mental Status Examination: alert and oriented. Airway Examination: normal oropharyngeal airway and neck mobility. Respiratory Examination: clear to auscultation. CV Examination: normal. Prophylactic Antibiotics: The patient does not require prophylactic antibiotics. Prior Anticoagulants: The patient has taken no previous anticoagulant or antiplatelet agents. After reviewing the risks and benefits, the patient was deemed in satisfactory condition to undergo the procedure. The anesthesia plan was to use monitored anesthesia care (MAC). Immediately prior to administration of medications, the patient was re-assessed for adequacy to receive sedatives. The heart rate, respiratory rate, oxygen saturations, blood pressure, adequacy of pulmonary ventilation, and response to care were monitored throughout the procedure. The physical status of the patient was re-assessed after the procedure. After I obtained informed consent, the scope was passed under direct vision. Throughout the procedure, the patient's blood pressure, pulse, and oxygen saturations were monitored continuously. The colonoscope was introduced through the anus and advanced to the cecum, identified by appendiceal orifice and ileocecal valve. The colonoscopy was performed without difficulty. The patient tolerated the procedure well. The quality of the bowel preparation was adequate. Scope In: 12:38:16 PM Scope Withdrawal Time 0 hours 9 minutes 47 seconds Scope Out: 12:51:23 PM Total Procedure Duration Time 0 hours 13 minutes 7 seconds Findings: The perianal and digital rectal examinations were normal. Two sessile polyps were found in the cecum. The polyps were 1 to 2 mm in size. These polyps were removed with a hot snare. Resection and retrieval were complete. Verification of patient identification for the specimen was done. Estimated blood loss was minimal. Three sessile polyps were found in the transverse colon and hepatic flexure. The polyps were 5 mm in size. These polyps were removed with a jumbo cold forceps. Resection and retrieval were complete. Verification of patient identification for the specimen was done. Estimated blood loss was minimal. A few small-mouthed diverticula were found in the recto-sigmoid colon and sigmoid colon. Impression: - Two 1 to 2 mm polyps in the cecum, removed with a hot snare. Resected and retrieved. - Three 5 mm polyps in the transverse colon and at the hepatic flexure, removed with a jumbo cold forceps. Resected and retrieved. - Diverticulosis in the recto-sigmoid colon and in the sigmoid colon. Recommendation: - Discharge patient to home. - Resume previous diet. - Continue present medications. - Await pathology results. - Repeat colonoscopy in 3 years for surveillance. Procedure Code(s): --- Professional --- 23113, Colonoscopy, flexible; with removal of tumor(s), polyp(s), or other lesion(s) by snare technique 05983, 59, Colonoscopy, flexible; with biopsy, single or multiple CPT copyright 2017 [employer]. All rights reserved. The codes documented in this report are preliminary and upon scuba dive training instructor review may be revised to meet current compliance requirements. Brandon Magaña DO 10/27/2022 12:56:26 PM This report has been signed electronically. Number of Addenda: 0 Note Initiated On: 10/27/2022 12:25 PM
--- NOTE | 2022-10-27 12:57 | OP.CCLET_ITS ---
10/27/2022 Danitza Taylor [facility] [address] [place] [address] Re : Colonoscopy procedure for Wesley Campos Dear Dr. Taylor This procedure was performed on October. My impressions and recommendations are as follows: Impressions : - Two 1 to 2 mm polyps in the cecum, removed with a hot snare. Resected and retrieved. - Three 5 mm polyps in the transverse colon and at the hepatic flexure, removed with a jumbo cold forceps. Resected and retrieved. - Diverticulosis in the recto-sigmoid colon and in the sigmoid colon. Recommendations : - Discharge patient to home. - Resume previous diet. - Continue present medications. - Await pathology results. - Repeat colonoscopy in 3 years for surveillance. My findings are described in the full procedure note, which is enclosed. If I can be of further assistance, please feel free to contact me at . Sincerely, Brandon Magaña, 10/27/2022 12:56:26 PM This report has been signed electronically.
[2022-10-27 13:00] VITALS: BP 104/79; BP 87/50; PULSE 86; RESP 18; O2SAT 96
[2022-10-27 13:05] VITALS: BP 104/79; BP 84/59; PULSE 88; RESP 18; O2SAT 100
[2022-10-27 13:11] VITALS: BP 104/79; BP 92/68; PULSE 88; RESP 18; TEMP 36.6; O2SAT 99
== END 2022-10-27 13:40 | disposition home or self-care (01) ==
LOC: EN 10:14 → AC 10:34
PROVIDERS: PCP Internal Medicine; Referring Provider Internal Medicine; Visit Provider Internal Medicine Gastroenterology
PROC: 0DJD8ZZ Inspection of Lower Intestinal Tract, Via Natural or Artificial Opening Endoscopic (ICD-10-PCS; CPT 45378; principal; 2022-10-27 12:10)
DX: Z12.11 Encounter for screening for malignant neoplasm of colon (principal); J44.9 Chronic obstructive pulmonary disease, unspecified; I48.91 Unspecified atrial fibrillation; Z87.891 Personal history of nicotine dependence; E78.5 Hyperlipidemia, unspecified; I10 Essential (primary) hypertension; K57.30 Diverticulosis of large intestine without perforation or abscess without bleeding; Z86.010 Personal history of colon polyps; Z79.01 Long term (current) use of anticoagulants; D12.3 Benign neoplasm of transverse colon; D12.0 Benign neoplasm of cecum
CPT/HCPCS: 45385; 45380; 88305; J7120

== ENCOUNTER → 2023-07-05 | Outpatient (CLI) | payer BC, SELFPAY ==
--- NOTE | 2023-07-05 08:06 | ECHOD_ITS ---
Reason For Study: ATRIAL FIBRILLATION Procedure This was a 2D Doppler, Color Flow transthoracic echocardiogram. Exam performed in department. Left Ventricle Normal LV size. Left ventricular systolic function is normal. The estimated ejection fraction is 60 %. No regional wall motion abnormalities noted. Right Ventricle Normal RV size. Normal systolic function. Atria Normal left atrium. Normal right atrium. Mitral Valve Normal mitral valve. Tricuspid Valve Normal tricuspid valve. Aortic Valve Trisinus/trileaflet aortic valve. Pulmonic Valve The pulmonic valve is not well visualized. Great Vessels Normal aortic root. The pulmonary artery is normal size. Normal inferior vena cava. Pericardium/Pleural No pericardial effusion. MMode/2D Measurements & Calculations LVIDd: 4.5 cm IVSd: 0.93 cm LVOT diam: 2.0 cm LVIDs: 2.6 cm LVPWd: 0.86 cm LVOT area: 3.0 cm2 RVDd: 3.2 cm FS: 43.2 % Ao root diam: 3.3 cm LAV(MOD-bp): 54.9 ml LVAd ap4: 19.9 cm2 LAV(MOD-bp) Indexed: 23.7 ml/m2 LVLd ap4: 6.9 cm LAV(MOD-sp2): 49.4 ml EDV(MOD-sp4): 47.9 ml LAV(MOD-sp4): 56.3 ml EDV(sp4-el): 48.7 ml LVAs ap4: 11.4 cm2 LVLs ap4: 5.9 cm ESV(MOD-sp4): 19.0 ml ESV(sp4-el): 18.6 ml EF(MOD-sp4): 60.3 % EF(sp4-el): 61.7 % LVAd ap2: 20.1 cm2 SV(MOD-sp4): 28.9 ml SV(MOD-sp2): 31.3 ml LVLd ap2: 6.6 cm EDV(MOD-sp2): 50.1 ml EDV(sp2-el): 51.5 ml LVAs ap2: 11.4 cm2 LVLs ap2: 6.1 cm ESV(MOD-sp2): 18.8 ml ESV(sp2-el): 18.1 ml EF(MOD-sp2): 62.5 % SV(sp4-el): 30.0 ml LA dimension(2D): 4.1 cm LA A4 area: 20.6 cm2 RA A4 area: 17.3 cm2 TAPSE: 1.2 cm Time Measurements MV dec time: 0.15 sec Doppler Measurements & Calculations MV E max kenji: 90.9 cm/sec Lat Peak E' Kenji: 12.1 cm/sec Med Peak E' Kenji: 9.3 cm/sec E/E' lat: 7.5 E/E' med: 9.8 Ao V2 max: 139.4 cm/sec LV V1 max: 85.8 cm/sec SV(LVOT): 48.5 ml Ao max P.8 mmHg LV V1 max P.9 mmHg Ao V2 mean: 89.2 cm/sec LV V1 mean P.4 mmHg Ao mean P.7 mmHg LV V1 mean: 54.0 cm/sec Ao V2 VTI: 25.1 cm LV V1 VTI: 16.0 cm AV (velocity ratio): 0.64 MAXWELL(I,D): 1.9 cm2 MAXWELL(V,D): 1.9 cm2 PA V2 max: 112.4 cm/sec PA max PG (full): 2.3 mmHg ECHO/Echo Complete Interpretation Summary Normal LV size. Left ventricular systolic function is normal. The estimated ejection fraction is 60 %. The study was technically limited. The study was technically difficult. Ordering Physician: All Smith Referring Physician: Danitza Taylor M.D. Performed By: Shira Cox RDCS
== END | disposition home or self-care (01) ==
PROVIDERS: PCP Internal Medicine; Visit Provider Internal Medicine Cardiovascular Disease
DX: I48.19 Other persistent atrial fibrillation (principal)
CPT/HCPCS: 93306

== ENCOUNTER → 2023-07-10 | Outpatient (CLI) | payer BC, SELFPAY ==
[2023-07-10 10:03] LABS: Absolute Lymphocyte Count 2.56 X10^3/uL (0.83-4.51); Absolute Neutrophil Count 5.4 X10^3/uL (2.0-7.7); Basophil# 0.06 X10^3/uL; Basophil% 0.6 % (0-1); Eosinophil# 0.36 X10^3/uL; Eosinophils% 3.8 % (0-5); Hematocrit 45.9 % (40-54); Hemoglobin 14.9 g/dL (13.0-16.5); Lymphocyte # 2.56 X10^3/ul (0.83-4.51); Lymphocyte % 27.2 % (19-41); Mean Corp Hgb Conc 32.5 g/dL (32-36); Mean Corpuscular Hgb 31.5 pg (27.0-32.0); Mean Platelet Vol. 9.3 fl (6.2-12.0); Monocyte# 0.97 X10^3/uL; Monocyte% 10.3 % (0-10); NRBC Flagged by Analyzer 0 % (0-5); Neutrophil # 5.41 X10^3/uL (2.7-7.7); Neutrophil % 57.6 % (47-70); Platelet Count 321 K/mm3 (150-450); RBC Distribution Width CV 11.9 % (11.6-14.6); RBC Distribution Width SD 42.9 fl (35.1-43.9); Red Blood Count 4.73 M/mm3 (4.6-6.2); White Blood Count 9.4 K/mm3 (4.4-11.0)
[2023-07-10 10:25] LABS: Vitamin D,25 Hydroxy 47.6 ng/mL
[2023-07-10 12:41] LABS: AST(SGOT) 21 U/L (15-37); Alanine Aminotransfer ALT/SGPT 39 U/L (16-61); Albumin, Serum 3.7 g/dL (3.2-5.0); Alkaline Phosphatase 68 U/L (45-117); Anion Gap 8 (5-15); BUN 25 mg/dL (7-18); BUN/Creat Ratio 16.8 RATIO (10-20); Calcium,Total 9.4 mg/dL (8.5-10.1); Chloride 105 mmol/L (98-107); Cholesterol 195 mg/dL (200); Creatinine, Serum 1.49 mg/dL (0.70-1.30); EST Glomerular Filtration Rate 50 mL/min (>60); Est Glom Filt Rate - Afr Amer 60 mL/min (>60); Globulin 3.8 g/dL (2.2-4.2); Glucose 107 mg/dL (74-106); High Density Lipoprotein 40 mg/dL; Magnesium 2.1 mg/dL (1.6-2.6); Potassium 4.2 mmol/L (3.5-5.1); Protein, Total 7.5 g/dL (6.4-8.2); Sodium Level 137 mmol/L (136-145); Thyroid Stim Hormone (TSH) 3.01 uIU/mL (0.358-3.74); Triglycerides 88 mg/dL; Very Low Density Lipoprotein 18 mg/dL (5-40)
== END | disposition home or self-care (01) ==
LOC: LAB 09:31
PROVIDERS: PCP Internal Medicine; Referring Provider Internal Medicine; Visit Provider Internal Medicine
DX: Z12.5 Encounter for screening for malignant neoplasm of prostate (principal); I48.19 Other persistent atrial fibrillation; E78.5 Hyperlipidemia, unspecified; I10 Essential (primary) hypertension; Z13.220 Encounter for screening for lipoid disorders; E55.9 Vitamin D deficiency, unspecified
CPT/HCPCS: 36415; 80053; 80061; 82306; 83735; 84153; 84443; 85025; G0103

== ENCOUNTER → 2023-12-20 | Outpatient (CLI) | payer BC, SELFPAY ==
[2023-12-20 12:59] LABS: Bacteria 0 SEEN /hpf (None Seen); Mucous, Urine 0 SEEN /hpf (<or=2+); Squamous Epithelial Cells - UA 0 SEEN /hpf (0-5); White Blood Cells 0 SEEN /hpf (0-5)
--- NOTE | 2023-12-20 13:01 | CT_ITS ---
HISTORY: hematuria/abdominal pain -- R/O stone. TECHNIQUE: Helically acquired images were obtained of the abdomen and pelvis without oral or IV contrast. A radiation dose optimization technique was used for this scan. 499 images. COMPARISON: None. FINDINGS: LOWER CHEST: Mild reticular scarring in the lung bases. BOWEL: Bowel including appendix nondilated. 1.4 cm intraluminal lipoma of the proximal duodenum. Moderate stool in the colon. No focal pericolonic inflammatory change. PERITONEUM: No significant free fluid. LIVER: Multiple cysts measuring up to 5.5 cm. GALLBLADDER/BILIARY TREE: Gallbladder present. SPLEEN/PANCREAS/ADRENAL GLANDS: Nonenlarged. KIDNEYS AND URETERS: Renal vascular calcifications. No nephrolithiasis, hydronephrosis, or obstructing ureteral calculus. 1.4 cm left renal cyst. VESSELS: No abdominal aortic aneurysm. Mild atherosclerosis. PELVIC ORGANS: Mildly enlarged prostate gland. Underdistended bladder. BONES: Degenerative changes of the lumbar spine with advanced spinal canal stenosis of L3-4 and L4-5. Old left L3 and L4 transverse process fractures. CT/Abdomen/Pelvis without Cont IMPRESSION: Negative examination for renal stone. Mildly enlarged prostate gland. Moderate stool in the colon. Electronically Signed: Lyudmila Guardado MD at 13:44 EDT ,
[2023-12-20 13:07] LABS: Absolute Lymphocyte Count 2.78 X10^3/uL (0.83-4.51); Absolute Neutrophil Count 4.9 X10^3/uL (2.0-7.7); Basophil# 0.05 X10^3/uL; Basophil% 0.6 % (0-1); Eosinophil# 0.33 X10^3/uL; Eosinophils% 3.7 % (0-5); Hematocrit 43.9 % (40-54); Hemoglobin 14.5 g/dL (13.0-16.5); Lymphocyte # 2.78 X10^3/ul (0.83-4.51); Lymphocyte % 31.2 % (19-41); Mean Corpuscular Hgb 31.3 pg (27.0-32.0); Mean Corpuscular Volume 94.8 fL (80-94); Mean Platelet Vol. 9.5 fl (6.2-12.0); Monocyte# 0.82 X10^3/uL; Monocyte% 9.2 % (0-10); NRBC Flagged by Analyzer 0 % (0-5); Neutrophil # 4.89 X10^3/uL (2.7-7.7); Neutrophil % 54.9 % (47-70); Platelet Count 243 K/mm3 (150-450); RBC Distribution Width CV 12.3 % (11.6-14.6); RBC Distribution Width SD 42.2 fl (35.1-43.9); Red Blood Count 4.63 M/mm3 (4.6-6.2); White Blood Count 8.9 K/mm3 (4.4-11.0)
[2023-12-20 13:17] LABS: ALB/GLOB Ratio 1.2 RATIO (0.9-2.4); AST(SGOT) 30 U/L (15-37); Alanine Aminotransfer ALT/SGPT 36 U/L (16-61); Albumin, Serum 3.8 g/dL (3.2-5.0); Alkaline Phosphatase 63 U/L (45-117); Anion Gap 7 (5-15); BUN 23 mg/dL (7-18); Calcium,Total 8.9 mg/dL (8.5-10.1); Chloride 106 mmol/L (98-107); Creatinine, Serum 1.15 mg/dL (0.70-1.30); EST Glomerular Filtration Rate 67 mL/min (>60); Est Glom Filt Rate - Afr Amer 81 mL/min (>60); Globulin 3.2 g/dL (2.2-4.2); Glucose 102 mg/dL (74-106); PSA,Total- Diagnostic 3.85 ng/mL (0.0-4.0); Potassium 4.3 mmol/L (3.5-5.1); Sodium Level 138 mmol/L (136-145)
[2023-12-20 13:47] LABS: Color, Urine Brown (Yellow); Glucose, Dipstick Normal (Normal); Ketone-Dipstick 5 mg/dl (Negative); Leukocyte Esterase-Dipstick 25 /ul (Negative); Nitrite-Dipstick Negative (Negative); Occult Blood-Urine 250 /ul (Negative); Protein-Dipstick 100 mg/dl (Negative); Urine Clarity Turbid (Clear); Urine Urobilinogen 1 mg/dl (Normal)
[2023-12-20 13:51] LABS: Urine Bilirubin Dipstick 1 mg/dL (Negative)
[2023-12-20 13:56] LABS: Red Blood Cells-Urine > 100 SEEN /hpf (0-5)
== END | disposition home or self-care (01) ==
PROVIDERS: PCP Internal Medicine; Referring Provider Internal Medicine; Visit Provider Internal Medicine
DX: R31.9 Hematuria, unspecified (principal); R10.9 Unspecified abdominal pain
CPT/HCPCS: 36415; 74176; 80053; 81001; 84153; 85025; 87086; 87088

== ENCOUNTER → 2023-12-25 | Outpatient (CLI) | payer BC, SELFPAY ==
--- NOTE | 2023-12-25 11:45 | CYSPIN_PTH ---
PATIENT: ANGELY PEREZ LOC: [facility] U#:[id number] AGE/SX: 68/M ROOM: RE12/25/[address]: Dr. Sourav Hirsch MD : 1955 BED: DIS: 12/25/2023 SPEC #: [id number] RECD: 12/26/23 09:55 STATUS: CHRISTIAN REJose Miguel #: [id number] ELVIRA: 12/25/23 11:[address]: Sourav Hirsch DEPT: CYTOLOGY RECD BY: Maliha Whitaker ENTERED: 12/26/23 09:56 SP TYPE: CYSPIN FL OTHR DR: Dr. Danitza Taylor MD Tissues: Urine Procedures: Pap Stain (control) Special Stain Group II Cytospin Fluid HEADER OPERATION: Not noted PRE-OP DIAGNOSIS: Gross hematuria TISSUE SUBMITTED: Urine for cytology DIAGNOSIS CYTOLOGY Urine for cytology (cytospin): Atypical urothelial cells noted (AUC) Maria System Category III. See comment. SJ/mr 12/26/2023 COMMENT This specimen is very cellular and consists of numerous clusters of urothelial cells with minimal atypia. Clinical correlation and appropriate follow up are necessary. The Maria System for urine cytology diagnostic categorization was used in the evaluation of this case. Case has been reviewed in consultation with Dr. Cooper who concurs with the above diagnosis. IDC:AM CYTOLOGY STUDY Slides are reviewed. CYTOLOGY GROSS Received is 40 ml of gold-cloudy fluid labeled with the patient's name and and designated per the requisition as urine. Submitted for cytology preparation. Mr 12/26/2023 TC:5 CPT: 42426
[2023-12-25 16:30] LABS: Cytology, Body Fluid / CSF SEE PATHOLOGY REPORT
== END | disposition home or self-care (01) ==
LOC: LABSPEC 16:14
PROVIDERS: PCP Internal Medicine; Referring Provider Urology; Visit Provider Urology
DX: R31.0 Gross hematuria (principal)
CPT/HCPCS: 88108; 88313

== ENCOUNTER → 2024-01-02 | Outpatient (CLI) | payer BC, SELFPAY | END | disposition home or self-care (01) | LOC: LABSPEC 16:18 | PROVIDERS: PCP Internal Medicine; Referring Provider Urology; Visit Provider Urology | DX: R30.0 Dysuria (principal) | CPT/HCPCS: 87086; 87088 ==